=== PATIENT | male | born 2000 | race Caucasian/White ===

== ENCOUNTER 2025-08-01 18:07 | Emergency (ER) | payer SELFPAY ==
[2025-08-01 18:15] VITALS: BP 138/85
[2025-08-01 20:18] VITALS: BMI 28.5
--- NOTE | 2025-08-01 20:18 | ED.SKININJ ---
HPI-Injury
General
Chief Complaint: Skin Surface Trauma
Time Seen by Provider: 08/01/25 19:54
History of Present Illness-Injury
Initial Injury comments:
Bernardino is a 25-year-old male who reports preparing dinner accidentally cutting his right index finger with a knife. Attempted to stop bleeding at home with direct pressure and salt in the wound for several hours prior to arrival but were
unsuccessful. Tetanus is not up-to-date
Skin Exam
Laceration
Right Distal Second Finger:
Length in cm: 3
Orientation: horizontal
Type of Laceration: simple
Any active bleeding?: low grade venous oozing
Distal skin color and temperature: normal-warm & good color
Phy Exam
General Physical Exam
General Presentation: well appearing and no apparent distress
General Skin: warm and dry
General Habitus: normal
General Mental: alert
General Hydration: appears well hydrated
ENT Exam
ENT Exam: EOMI, pharynx normal, neck supple and normocephalic
Eye Exam
Eye Exam: PERRL, cornea clear and conjunctiva normal
Cardiovascular Exam
Cardiovascular Exam: regular rate/rhythm, no edema, no murmur and normal peripheral pulses
Pulmonary Exam
Pulmonary Exam: lungs clear, no respiratory distress, no rales, no crackles, no rhonchi, no stridor, no wheezing and no cough
Gastrointestinal Exam
Gastrointestinal Exam: normal bowel sounds, non tender, soft, no organomegaly, no pulsatile mass and non distended
Neurological Exam
Neurological Exam: alert, oriented x3, no motor deficits and speech normal
Musculoskeletal Exam
Musculoskeletal Exam: full ROM and no edema
Skin Exam
Skin Exam: normal color, warm/dry, no rash, no petechia and other (Laceration as described above)
Psychiatric Exam
Psychiatric Exam: normal mood/affect
Course
Vital Signs
Initial and Last Documented VS:
Initial Vital Signs
Temp Pulse Resp BP Pulse Ox
37.0 C 67 20 138/85 100
08/01/25 18:15 08/01/25 18:15 08/01/25 18:15 08/01/25 18:15 08/01/25 18:15
Last Documented Vital Signs
Temp Pulse Resp BP Pulse Ox
37.0 C 67 20 138/85 100
08/01/25 18:15 08/01/25 18:15 08/01/25 18:15 08/01/25 18:15 08/01/25 18:15
Procedures
Laceration Closure
Right Palmar Second Finger:
Status of Wound: clean
Size of Wound in cm: 3
Description of Wound Edges: sharp
Preparation: cleaned with saline
Anesthesia: 1% Lidocaine (1 cc)
Revision/Debridement: routine- no revision
Skin Closure Material: 4-0 nylon
Number of sutures: 2
MDM/Problems Addressed
Differential Diagnosis Includes:
Simple laceration repaired with 4-0 nylon sutures and now hemostatic. tetanus updated. Should have sutures removed in 5 to 7 days. Can follow-up in the clinic or in the ER as patient does not have any insurance.
*Pulse Oximetry
SaO2: 100
Oxygen Mode of Delivery: Room air
Patient hypoxic: no
*Critical Care Note
Total Time (30-74mins, 75-104mins- exclusive of procedures): Not Applicable
ED Attending Note
-
Portions of this chart may have been created with voice recognition software.� Occasional wrong word or��sound alike� substitutions may have occurred due to the inherent limitations of voice recognition software.
Discharge Plan
Departure
Patient Disposition: Home (Routine Discharge)
Date of Disposition: 08/01/25
Time of Disposition: 20:17
Patient with high blood pressure during this ER visit?: No
Discharge Problem:
Laceration of finger
Instructions: Laceration Repair With Stitches (DC)
Referrals:
[facility] [Outside]
Activity Restrictions/Additional Instructions:
Please follow-up in 5 to 7 days for suture removal. Information on our [facility] provided. If you are unable to have them removed there he may follow-up in the emergency room or an urgent care facility.
Interventions
Interventions:
*Risk Screen - Suicide Last Done: 08/01/25 18:15
*General Assessment Last Done: 08/01/25 18:15
*Neglect/Abuse Screening Last Done: 08/01/25 18:15
Discharge Date and Time
Print Language: [place]
[2025-08-01] MEDS: ADACEL 0.5 ML IM (20:32)
== END 2025-08-01 20:38 | disposition home or self-care (01) ==
LOC: EMR 18:07
PROVIDERS: EMERGENCY PHYSICIAN Student in an Organized Health Care Education/Training Program
DX: S61.210A Laceration without foreign body of right index finger without damage to nail, initial encounter (principal); W26.0XXA Contact with knife, initial encounter; Z23 Encounter for immunization
CPT/HCPCS: 12002; 90471; 99282; 90715